=== PATIENT | male | born 1935 | race Caucasian/White ===

== ENCOUNTER 2017-09-09 13:39 | Day surgery (SDC) | payer MEDICARE | END 2017-09-09 14:30 | disposition left against medical advice (07) | LOC: HOP 13:39 | PROVIDERS: ATTEND Internal Medicine Gastroenterology | DX: Z53.9 Procedure and treatment not carried out, unspecified reason (principal) ==

== ENCOUNTER 2017-11-11 08:40 | Day surgery (SDC) | payer MEDICARE ==
[2017-11-11] MEDS ORDERED: PROPOFOL 10 MG/ML VIAL IV ONE ×2 (08:41)
[2017-11-11] MEDS ORDERED: LIDOCAINE 2% MDV (20MG/ML) 20ML VIAL IV ONE (08:41)
[2017-11-11] MEDS ORDERED: MIDAZOLAM HCL 2MG/2ML VIAL IV ONE (08:41)
--- NOTE | 2017-11-11 13:30 | Operative Note ---
DATE OF SURGERY: 11/11/2017 OPERATION: COLONOSCOPY with cold forceps polypectomy. PREOPERATIVE DIAGNOSIS: History of tubular adenoma. POSTOPERATIVE DIAGNOSES: 1. Severe sigmoid diverticulosis. 2. Ascending colon polyp, status post cold forceps removal. PREPARATION QUALITY: Good at best. ESTIMATED BLOOD LOSS: Minimum. SPECIMENS: Ascending colon polyp. PROCEDURE: After informed consent was obtained from the patient, he was placed in the left lateral decubitus position in the endoscopy suite, sedated and monitored by the department of anesthesia. Digital rectal exam was unremarkable. A well-lubricated JCV126 colonoscope was inserted into the rectum and advanced to the cecum. Preparation quality was good at best. The cecum was unremarkable. The ileocecal valve and appendiceal orifice were unremarkable. In the ascending colon there was a diminutive polyp removed with a cold forceps. Minimal bleeding was noted. The remainder of the ascending colon, transverse colon, and descending colon were unremarkable. The sigmoid colon did reveal severe diverticular changes. No polyps, mass lesions, or inflammation seen. Forward and J-turn views of the rectum and anorectum were unremarkable. The endoscope was straightened, the rectal ampulla deflated, and the endoscope was removed. RECOMMENDATIONS: The patient should resume his medications and follow a high-fiber diet. I would not recommend a repeat exam based on his age and findings unless clearly if symptoms warrant, a repeat evaluation would be considered. As always, thank you for allowing me to participate in the healthcare of your patients. CC: Alana DENISE
== END 2017-11-11 10:37 | disposition home or self-care (01) ==
LOC: HOP 08:40
PROVIDERS: ATTEND Internal Medicine Gastroenterology
DX: Z12.11 Encounter for screening for malignant neoplasm of colon (principal); Z86.010 Personal history of colon polyps; D12.2 Benign neoplasm of ascending colon; K57.30 Diverticulosis of large intestine without perforation or abscess without bleeding; E78.00 Pure hypercholesterolemia, unspecified; I26.99 Other pulmonary embolism without acute cor pulmonale

== ENCOUNTER 2018-03-18 16:27 | Emergency (ER) | payer MEDICARE ==
[2018-03-18] MEDS ORDERED: ASPIRIN 81 MG CHEWABLE TABLET PO ONE (16:30)
--- NOTE | 2018-03-18 16:37 | Emergency Department Record ---
History of Present Illness - General Chief Complaint: Chest Pain Stated Complaint: CHEST PAIN Time Seen by Provider: 03/18/18 16:29 Source: Patient Mode of Arrival: Ambulatory Limitations: No limitations - History of Present Illness Initial Comments: 82 yo male presents with intermittent chest pain the last week. The pain is mid chest. It is a pressure or gas like feeling. The discomfort initially was coming and going infrequently. Over the course of the week the frequency has increased. No syncope. No radiating pain. No jaw, arm, or back pain. He states he has a history of atrial fibrillation in the past. He has seen Dr Urbina for the atrial fibrillation in the past. His last afib was about 2 years ago. He is on Xarelto still. His PCP is Dr Benítez. No history of stents or CABG. He is unsure when his last stress test was performed. He states he feels tired and fatigued otherwise he is in his usual states of health. MD Complaint: Chest pain -: Week(s) Onset: During exertion, During rest Pain Location: Substernal Pain Radiation: None Severity: Mild Quality: Aching, Other (Pressure, gas like) Consistency: Intermittent Improves With: Nothing Worsens With: Nothing Context: Other Anginal Symptoms: Other (Feels tired) - Related Data Home Medications Medication Instructions Recorded Confirmed Last Taken Meloxicam 15 mg PO DAILY 03/18/18 03/18/18 03/18/18 07:00 Rivaroxaban [Xarelto] 20 mg PO DAILY 03/18/18 03/18/18 03/18/18 07:00 Simvastatin 40 mg PO DAILY 03/18/18 03/18/18 03/18/18 07:00 Tamsulosin HCl [Flomax] 0.4 mg PO DAILY 03/18/18 03/18/18 03/17/18 21:00 Allergies Allergy/AdvReac Type Severity Reaction Status Date / Time No Known Drug Allergies Allergy Verified 03/18/18 16:35 Review of Systems Constitutional: Reports: Malaise. Denies: Chills, Fever, Weakness Eyes: Denies: Eye discharge ENT: Denies: Congestion, Throat pain Respiratory: Denies: Cough, Hemoptysis, Stridor, Wheezes Cardiovascular: Reports: As per HPI, Chest pain, Palpitations Endocrine: Reports: Fatigue Gastrointestinal: Denies: Abdominal pain, Diarrhea, Nausea, Vomiting Genitourinary: Denies: Dysuria, Frequency, Hematuria, Urgency Musculoskeletal: Denies: Arthralgia, Back pain, Joint swelling, Myalgia Skin: Denies: Bruising, Change in color, Rash Neurological: Denies: Headache, Numbness, Weakness Psychiatric: Denies: Anxiety Hematological/Lymphatic: Denies: Easy bleeding, Easy bruising Past Medical History - SOCIAL HISTORY Smoking Status: Former smoker - RESPIRATORY Hx Respiratory Disorders: Yes Hx Pulmonary Embolism: Yes Hx Sleep Apnea: Yes Hx of CPAP: No - CARDIOVASCULAR Hx Cardio Disorders: Yes Comment:: high cholesterol - NEURO Hx Neuro Disorders: No - GI Hx GI Disorders: Yes Hx of Polyps: Yes - Hx Genitourinary Disorders: No - ENDOCRINE Hx Endocrine Disorders: No - MUSCULOSKELETAL Hx Musculoskeletal Disorders: Yes Hx Arthritis: Yes - PSYCH Hx Psych Problems: Yes Hx Depression: Yes - HEMATOLOGY/ONCOLOGY Hx Hematology/Oncology Disorders: No Family Medical History Hx Cancer: Father, Mother *Cancer Comment: colon cancer Physical Exam - General General Appearance: Alert, Oriented x3, Cooperative, No acute distress Limitations: No limitations - Head Head exam: Normal inspection - Eye Eye exam: Normal appearance, PERRL. negative: Conjunctival injection, Scleral icterus - ENT ENT exam: Normal exam, Mucous membranes moist Ear exam: Normal external inspection Nasal Exam: Normal inspection Mouth exam: Normal external inspection - Neck Neck exam: Normal inspection, Full ROM. negative: Tenderness - Respiratory Respiratory exam: Normal lung sounds bilaterally. negative: Respiratory distress - Cardiovascular Cardiovascular Exam: Regular rate, Normal rhythm, Normal heart sounds Peripheral Pulses: 2+: Radial (R), Radial (L) - GI/Abdominal GI/Abdominal exam: Soft. negative: Tenderness - Rectal Rectal exam: Deferred - exam: Deferred - Extremities Extremities exam: Normal inspection, Full ROM, Normal capillary refill. negative: Pedal edema, Tenderness - Back Back exam: Denies: CVA tenderness (R), CVA tenderness (L) - Neurological Neurological exam: Alert, Normal gait, Oriented X3 - Psychiatric Psychiatric exam: Normal affect, Normal mood - Skin Skin exam: Dry, Intact, Normal color, Warm Course - Reevaluation(s) Reevaluation #1: 03/18/18 16:34 EKG 1631 NSR rate is 59, intervals QRD 132, Twc 478, left axis, RBBB, ST no acute changes. No significant changes from prior 01. 03/18/18 17:12 The CBC was reviewed. NO acute changes. 03/18/18 17:31 The CMP was normal The Troponin is normal The CXR was reviewed. COPD, old rib fracture. No acute process. 03/18/18 17:35 HR at times decreases to mid 40's. Patient is asymptomatic [facility] Called for Cardiology 03/18/18 17:38 He denies any discomfort at this time. 03/18/18 17:50 I JOSE LUIS Beverly of [facility] The patient has been accepted for transfer and further work up for his chest pain and bradycardia Medical Decision Making - Lab Data Result diagrams: 03/18/18 16:35 03/18/18 16:35 Disposition Disposition: Transfer Clinical Impression: Chest pain Qualifiers: Chest pain type: unspecified Qualified Code(s): R07.9 - Chest pain, unspecified Disposition: Acute Care Hospital Transfer Transfer To: [facility] For Transfer: Chest pain Accepting Physician: Rush Time Discussed w/Accepting Physician: 17:43 Condition: (1) Good Forms: Patient Portal Access Time of Disposition: 17:43 Quality - Quality Measures Quality Measures: N/A - Blood Pressure Screening Does Patient Have Any of the Following: No Blood Pressure Classification: Pre-Hypertensive BP Reading Systolic Measurement: 182 Diastolic Measurement: 86 Screening for High Blood Pressure: < Pre-Hypertensive BP, F/U Documented > [ [id number]] Pre-Hypertensive Follow-up Interventions: Referral to alternative/primary care provider.
[2018-03-18 16:53] LABS: BASO % 0.5 % (0-6); EOS % 3.1 % (0-6); GRAN % 63.2 % (47-80); HEMATOCRIT 41.8 % (42.0-52.0); HEMOGLOBIN 13.2 gm/dl (14.0-18.0); LYMPH % 22.4 % (16-45); MEAN CELL VOLUME 94.4 fl (81-97); MEAN CORPUSCULAR HEMOGLOBIN 29.7 pg (27-33); MEAN CORPUSCULAR HGB CONC 31.6 g/dl (32-36); MEAN PLATELET VOLUME 11.7 fl (7.4-10.4); MONO % 10.8 % (0-9); PLATELET COUNT 108 K/uL (130-400); RED BLOOD COUNT 4.43 M/uL (4.40-5.70); WHITE BLOOD COUNT W/O DIFF 6.2 K/uL (4.2-12.2)
[2018-03-18 17:05] LABS: BLOOD UREA NITROGEN 24 mg/dL (8-23); EST GLOMERULAR FILTRATION RATE > 60 mL/min
[2018-03-18 17:08] LABS: GLUCOSE,RANDOM 103 mg/dL (74-109)
[2018-03-18 17:09] LABS: INR 1.1; PARTIAL THROMBOPLASTIN TIME 30.6 SECONDS (24.5-39.1); PROTHROMBIN TIME (PATIENT) 11.7 SECONDS (9.5-12.1)
[2018-03-18 17:11] LABS: CREATINE PHOSPHOKINASE 70 U/L (39-308)
[2018-03-18 17:13] LABS: CKMB 2.1 ng/mL (<6.73)
--- NOTE | 2018-03-20 22:31 | RADIOLOGY REPORT ---
EXAM: CHEST 2 VIEWS HISTORY: CHEST PAIN. TECHNIQUE: Frontal and lateral views of the chest. COMPARISON: None. FINDINGS: The heart size is normal. Osteopenia. Atheromatous change thoracic aorta. COPD. Multiple old, healed left rib fractures. No pneumothorax. Lungs are clear. IMPRESSION: COPD. MULTIPLE OLD LEFT RIB FRACTURES. JOB NUMBER: [id number] MTDD
== END 2018-03-18 19:02 | disposition short-term general hospital (02) ==
LOC: ER 16:27
DX: R07.89 Other chest pain (principal); Z87.891 Personal history of nicotine dependence; Z79.01 Long term (current) use of anticoagulants; Z86.711 Personal history of pulmonary embolism
CPT/HCPCS: 71046; 80048; 82550; 82553; 84484; 85025; 85610; 85730; 93005; 93010; 99285